=== PATIENT | male | born 1940 | race Caucasian/White ===

== ENCOUNTER → 2020-04-01 | Outpatient (CLI) | payer MEDICARE, OTHER ==
[~2020-04-01] MED LIST: /BUSP5TA; ACET500C; ATIV1TAB2; BUME0.5T; BUME1TAB; BUSP15TA; CATA0.1T; CHOLESTYRAMINE; COLA100C2; FENT1DIS16; FLOM0.4C39; FLORASTOR; GAS-80CH; GUAIPOW; LEXA1TAB; LOVE1INJ; METOPROLOL TARTRATE; MULTLIQ7; NOVOLOG100 MG/ML; NYSTATIN; PAIN325T; POTA20TA2; PRIL20CA; PRIN10TA; PROT1TAB2; PROVIGIL; SERO1TAB3; SLOWTAB; VICO5TAB; [UNRECOGNIZED DRUG - OTHER]; [UNRECOGNIZED DRUG - OTHER]; dulcolax; metamucil
--- NOTE | 2020-04-11 09:36 | SLEEPCENT ---
DATE: 04/01/2020 ORDERED BY: Dr. Jey Hernadez Nocturnal polysomnography was performed in an attempt to re-titrate pressure therapy in this patient with severe obstructive sleep apnea syndrome. For testing, a full face mask was recommended. The patient refused and was willing only to wear a [employer] nasal standard mask with chin strap. An initial pressure of 21/16 was applied to the circuit and the lights were extinguished. Six hours and 11 minutes of data were reviewed. There were only 103.5 minutes of sleep identified. Sleep latency was short at 9.5 minutes. REM sleep was not achieved. Sleep architecture was poor with multiple episodes of wake and sleep fragmentation. Overall sleep efficiency was 28.2%. The electrocardiogram showed a sinus rhythm at baseline with an average heart rate of 68 beats per minute. Unifocal ventricular ectopic beats were seen and the rate range was 40-80 beats per minute. EEG showed some coarsening in background waveforms, otherwise normal waveforms for wake and sleep. There were no focal events identified. Persistence of respiratory events prompted an increase in the CPAP pressures. Failure of the chin strap led to mask leak through the mouth. The maximal pressure achieved was inspiratory 25/20 at which pressure the patient continue to experience sleep medicine evaluation events due to mask leak. Saturations remained 88% or better. There was some limb movement activity early in the study. Only one train of 30 events. Limb movement arousal index was 15.1. IMPRESSIONS: 1. Severe obstructive sleep apnea syndrome (G47.33). 2. Possible periodic limb movement disorder (G47.61). Limb movement arousal index 15.1. RECOMMENDATION: Optimal mask fit is necessary for bilevel pressure therapy to be effective. Based on this study, an inspiratory pressure of 25 over expiratory 21 achieved the best outcome with regard to obstructive events but as the patient did not achieve REM sleep, it is difficult to determine if this is indeed the optimal pressure. Pending response to pressure therapy, interventions to reduce the frequency arousal from limb events may also be helpful. [facility]
== END ==
LOC: M SLEEP 20:00
PROVIDERS: ATTEND Internal Medicine Pulmonary Disease
DX: G47.33 Obstructive sleep apnea (adult) (pediatric) (principal)

== ENCOUNTER → 2020-11-21 | Outpatient (REF) | payer MEDICARE, OTHER | LOC: M LAB REF 14:02 | PROVIDERS: ATTEND Physician Assistant | DX: L57.0 Actinic keratosis (principal) | CPT/HCPCS: 11102; 17000; 88305; G0463 ==

== ENCOUNTER → 2023-11-30 | Outpatient (REF) | payer MEDICARE, OTHER ==
[~2023-11-30] MED LIST changes: +ACET-683 PO; +ADVA230A INH; +ALBU8.5H INH; +CALC600T86 PO; +CARDCAP3 PO; +CHIL5SYP3 PO; +CICL1SHA2 TOP; +CLOT1CRE71 TOP; +COMPTAB7 PO; +EQL50TAB2 PO; +FAMO1TAB11 PO; +FENO54TA2 PO; +FINA5TAB2 PO; +FLUTISP INH; +KETO2CR TOP; +LISI5TAB11 PO; +MAGN400C PO; +MAGN64TASA PO; +MELA3TAB30 PO; +METF-838 PO; +METO1TAB7 PO; +MUPI2OI TOP; +MYCO500T PO; +OMEGCAP4 PO; +PANT40TA29 PO; +PHOS1TAB3 PO; +POTA10CA70 PO; +PROB250C PO; +PROP1DRO OU; +PYRI1TAB3 PO; +PYRI60TA2 PO; +SPIR1TAB34 PO; +SUCR1TAB56 PO; +SYNT50TA PO; +TAMS1CAP17 PO; +VITA500075 PO; +XARE20TA
[2023-11-30 09:19] LABS: BASO # 0.1 10^3/uL (0.0-0.2); BASO % 0.6 % (0.0-1.0); EOS # 0.2 10^3/uL (0.0-0.5); EOS % 2.9 % (0.0-3.0); HEMOGLOBIN 14.3 g/dl (13.5-17.5); LYMPH # 1.6 10^3/uL (1.5-5.0); LYMPH % 19.7 % (24.0-44.0); MEAN CORPUSCULAR HEMOGLOBIN 30.6 pg (27.0-33.0); MEAN CORPUSCULAR HGB CONC 31.8 g/dl (32.0-36.5); MEAN CORPUSCULAR VOLUME 96.4 fl (80.0-96.0); MONO # 0.9 10^3/uL (0.0-0.8); MONO % 10.4 % (2.0-8.0); NEUTROPHILS # 5.4 10^3/uL (1.5-8.5); NEUTROPHILS % 65.1 % (36.0-66.0); PLATELET COUNT, AUTOMATED 196 10^3/uL (150-450); RED BLOOD COUNT 4.67 10^6/uL (4.30-6.10); WHITE BLOOD COUNT 8.3 10^3/uL (4.0-10.0)
[2023-11-30 09:24] LABS: HEMOGLOBIN A1c 5.3 % (4.0-6.0)
== END ==
LOC: M LAB REF 08:50
PROVIDERS: ATTEND Family Medicine
DX: K92.2 Gastrointestinal hemorrhage, unspecified (principal); R73.03 Prediabetes; K25.9 Gastric ulcer, unspecified as acute or chronic, without hemorrhage or perforation; D62 Acute posthemorrhagic anemia